=== PATIENT | male | born 1970 | race Caucasian/White ===

== ENCOUNTER 2023-07-20 10:47 | Outpatient (CLI) | payer BC, SELFPAY ==
--- NOTE | ~2023-07-20 | XR_ITS ---
Left foot Technique: AP and lateral views were obtained. Clinical History: Osteoarthritis Findings: No acute fracture or dislocation is seen. Osseous alignment is anatomic. Joint spaces are p reserved without erosive or degenerative change. Soft tissues are unremarkable. Impression: Unremarkable left foot radiographs. Reviewed, dictated and finalized at [facility]. RPRISE ENGINEER Impression: Unremarkable left foot radiographs.
--- NOTE | ~2023-07-20 | XR_ITS ---
EXAMINATION: XR hand BI arthritis min 3V DATE: 07/20/2023 11:25 INDICATION: Multiple joint pain. TECHNIQUE: 4 views of right hand and 4 views of left hand on 7 radiographs were obtained. COMPARISON: Left wrist radiographs 07/18/2007 FINDINGS: RIGHT HAND: Bone alignment is normal. No acute fracture. There is heterotopic ossification distal to ulna. There is mild osteoarthritis of triscaphe joint and severe osteoarthritis of first carpometacar pal joint. There is mild osteoarthritis of many of the metacarpophalangeal joints and interphalangeal joints. LEFT HAND: Bone alignment is normal. No fracture. There is mild osteoarthritis of triscaphe joint and first carpometacarpal joint. There is mild osteoarthritis of many of the metacarpophalangeal joints and interphalangeal joints. IMPRESSION: 1. Polyarticular osteoarthritis. Reviewed, dictated and finalized at location E. H HAND
--- NOTE | ~2023-07-20 | XR_ITS ---
Right foot Technique: AP and lateral views were obtained. Clinical History: Osteoarthritis Findings: No acute fracture or dislocation is seen. Osseous alignment is anatomic. Joint spaces are p reserved without erosive or degenerative change. Soft tissues are unremarkable. Impression: Unremarkable right foot radiographs. Reviewed, dictated and finalized at [facility]. TRONIC WIRER Impression: Unremarkable right foot radiographs.
--- NOTE | ~2023-07-20 | XR_ITS ---
EXAMINATION: XR sacroiliac joints min 3V DATE: 07/20/2023 11:25 INDICATION: Unspecified osteoarthritis, unspecified site. TECHNIQUE: 3 views of the sacroiliac joints were obtained. COMPARISON: None. FINDINGS: Bone alignment is normal. No fracture. There is severe arthritis of the sacroiliac joints. There is internal fixation of proximal left femur. There is mild osteoarthritis of the hips. IMPRESSION: 1. 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 Reviewed, dictated and finalized at location E. JS DEVELOPER IMPRESSION: 1. Symmetric severe arthritis of the sacroiliac joints, which may be inflammato ry arthropathy or osteoarthritis.
--- NOTE | ~2023-07-20 | XR_ITS ---
Lumbosacral Spine: AP and lateral views Clinical History: Pain Findings: The normal lordotic curve is maintained. The vertebral bodies and posterior elements are i ntact. The intervertebral disc spaces are preserved. There is mild facet arthropathy and the lower l umbar spine. The sacroiliac joints are normally outlined. Impression: Mild facet arthropathy of the lower lumbar spine. Reviewed, dictated and finalized at location . Impression: Mild facet arthropathy of the lower lumbar spine.
[2023-07-20 12:16] LABS: Rheumatoid Factor < 12.0 IU/ML (<12)
[2023-07-25 05:12] LABS: Anti Cyclic Citrullinated Pept <16 Units (<20)
[2023-07-25 10:06] LABS: HLA B27 Negative (Negative)
== END 2023-07-20 10:48 | disposition home or self-care (01) ==
PROVIDERS: PCP Internal Medicine; Visit Provider Internal Medicine
DX: M15.9 Polyosteoarthritis, unspecified (principal); M47.816 Spondylosis without myelopathy or radiculopathy, lumbar region; Z71.89 Other specified counseling; Z79.899 Other long term (current) drug therapy
CPT/HCPCS: 36415; 72100; 72202; 73130; 73620; 86200; 86430; 86812

== ENCOUNTER 2023-08-01 15:20 | Outpatient (CLI) | payer BC, SELFPAY ==
--- NOTE | ~2023-08-01 | MR_ITS ---
EXAMINATION: MR lumbar spine wo/w con, MR sacroiliac jts wo/w con DATE: 08/01/2023 17:44 INDICATION: Unspecified osteoarthritis. Back pain with walking. TECHNIQUE: 1. Magnetic resonance imaging (MRI) of the lumbar spine was performed without and with 20 mL Multihan ce intravenous contrast. Sequences included sagittal T2-weighted FSE, sagittal T2-weighted FS FSE, an d sagittal and axial T1-weighted FSE. Postcontrast sequences included axial T2-weighted FSE, sagittal T1-weighted FSE, and axial and sagittal T1-weighted FS FSE. 2. MRI of the bilateral sacroiliac joints was performed without and with the same 20 mm MultiHance in travenous contrast bolus. Sequences included sagittal PD-weighted FS FSE, coronal T2-weighted FS FSE, coronal T1-weighted SE, axial T2-weighted FS FSE, axial T1-weighted FSE and T1-weighted FSE. Postco ntrast axial, sagittal and coronal T1-weighted FS FSE were also obtained. COMPARISON: Radiographs of the lumbar spine and sacroiliac joints dated 07/20/2023. FINDINGS: Lumbar spine: Alignment is normal. Mild anterior wedging with 20% anterior vertebral body height loss at T11 and 10 % anterior vertebral body height loss at T12 which may be physiologic. Lumbar vertebral body heights are normal. Normal marrow signal. Moderate disc height loss at T11-T12 and mild disc height loss at T12-L1 and L1-L2. The conus medullaris terminates at L1. There is normal signal in the caudal spinal cord. Paravertebral soft tissues are unremarkable. No abnormally enhancing lesions identified. The fo llowing disc levels are specifically discussed: T11-T12: The disc does not extend beyond the endplate margin. There is mild bilateral facet joint ost eoarthritis. T12-L1: The disc does not extend beyond the endplate margin. There is mild bilateral facet joint oste oarthritis. There is no neural foraminal stenosis. There is no central canal stenosis. L1-L2: The disc does not extend beyond the endplate margin. There is mild bilateral facet joint osteo arthritis. There is no neural foraminal stenosis. There is no central canal stenosis. L2-L3: Disc is minimally bulging. There is mild bilateral facet joint osteoarthritis. There is mild b ilateral neural foraminal stenosis. There is no central canal stenosis. L3-L4: Disc is minimally bulging. There is mild bilateral facet joint osteoarthritis. There is mild b ilateral neural foraminal stenosis. There is no central canal stenosis. L4-L5: Disc is minimally bulging. There is mild bilateral facet joint osteoarthritis. There is mild r ight and minimal left neural foraminal stenosis. There is no central canal stenosis. L5-S1: The disc does not extend beyond the endplate margin. There is mild bilateral facet joint osteo arthritis. There is no neural foraminal stenosis. There is no central canal stenosis. Sacroiliac joints: Severe joint space narrowing with regions of osseous fusion across portions of the bilateral sacroili ac joints. There is metallic magnetic field artifact associated with antegrade intramedullary basilia fix ation at the proximal left femur. Small low signal intensity bone island at the left ischial tuberosi ty. Otherwise normal marrow signal in the pelvis and proximal femurs. Mild bilateral hip osteoarthrit is. Small fat-containing left inguinal hernia. Visualized portions of bowels are unremarkable. No pat hologically enlarged pelvic or inguinal lymphadenopathy. No free fluid in the pelvis. No abnormally e nhancing lesions identified. IMPRESSION: 1. Mild lumbar spondylosis. 2. 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 3. Small fat-containing left inguinal hernia. Reviewed, dictated and finalized at location A. WORKER
== END 2023-08-01 15:21 | disposition home or self-care (01) ==
LOC: ANHIMG 15:29
PROVIDERS: PCP Internal Medicine; Visit Provider Internal Medicine
DX: M47.816 Spondylosis without myelopathy or radiculopathy, lumbar region (principal); M15.9 Polyosteoarthritis, unspecified; Z71.89 Other specified counseling; Z79.899 Other long term (current) drug therapy; M46.1 Sacroiliitis, not elsewhere classified; K40.90 Unilateral inguinal hernia, without obstruction or gangrene, not specified as recurrent; M53.3 Sacrococcygeal disorders, not elsewhere classified
CPT/HCPCS: 72158; 72197; A9577

== ENCOUNTER 2023-10-19 15:20 | Outpatient (CLI) | payer BC, SELFPAY ==
[2023-10-19 18:40] LABS: Hepatitis B Surface Antigen Negative (Negative)
[2023-10-19 18:58] LABS: Hepatitis B Surface Anti Res Negative; Hepatitis C Virus Antibody Reactive (Negative)
[2023-10-21 13:23] LABS: Hepatitis C RNA, Quant PCR <15 NOT DETECTED IU/mL (NOT DETECTED)
[2023-10-21 14:23] LABS: PNL A Neg Control 0; PNL B Corr Neg Control 0; T SPOT NEG CONTROL Passed; T SPOT POS CONTROL Passed; T Spot TB Result Negative (SeeBelow)
== END 2023-10-19 15:21 | disposition home or self-care (01) ==
LOC: ANHLAB 15:22
PROVIDERS: PCP Internal Medicine; Visit Provider Internal Medicine
DX: M46.1 Sacroiliitis, not elsewhere classified (principal); Z11.59 Encounter for screening for other viral diseases
CPT/HCPCS: 36415; 86481; 86706; 86803; 87340; 87522